=== PATIENT | female | born 1950 | race Caucasian/White ===

== ENCOUNTER 2021-12-15 03:35 | Inpatient (IN) | payer MEDICARE, BC ==
[2021-12-15] MEDS ORDERED: Sodium Chloride 0.9% 1,000 ML IV ONE (03:52)
[2021-12-15] MEDS ORDERED: Sodium Chloride 0.9% 10 ML Syringe FLUSH PRN (03:52)
[2021-12-15] MEDS ORDERED: cefTRIAXone 1 GM Vial IVPUSH ONE (03:52)
[2021-12-15] MEDS ORDERED: Acetaminophen 500 MG Tab PO ONE (04:05)
[2021-12-15 04:37] LABS: CHLORIDE,CL 101 mmol/L (98-107); SODIUM,NA 139 mmol/L (136-145)
[2021-12-15 04:38] LABS: ANION GAP 18.7 mmol/L (5-15); ESTIMATED GFR 37 mL/min (>=60)
[2021-12-15] MEDS ORDERED: Rosuvastatin 20 MG Tab ONE (11:40)
[2021-12-15] MEDS ORDERED: ClonazePAM 0.5 MG Tab ONE (11:40)
[2021-12-15] MEDS ORDERED: LORazepam 2 MG/ML SDV ONE (11:40)
[2021-12-15] MEDS ORDERED: Amitriptyline 25 MG Tab ONE (11:40)
[2021-12-15] MEDS ORDERED: Acetaminophen 325 MG Tab ONE (11:40)
[2021-12-15] MEDS ORDERED: Acetaminophen 500 MG Tab ONE (11:40)
[2021-12-15] MEDS ORDERED: Piperacillin/Tazobactam 4.5 GM in Sodium Chloride 0.9% 100 ML IV ONE (12:00)
[2021-12-15] MEDS ORDERED: Vancomycin/Water for INJ (PEG) 1.5 GM/300 ML Premix ONE (12:00)
[2021-12-15] MEDS ORDERED: Insulin Glarg,Human.Rec.Analog 100 Unit/ML ONE (12:01)
[2021-12-15] MEDS ORDERED: Insulin Lispro 100 Units/ML 3 ML Vial ONE (12:01)
[2021-12-15] MEDS ORDERED: Piperacillin/Tazobactam 3.375 GM in Sodium Chloride 0.9% 100 ML IV ONE (19:52)
[2021-12-15] MEDS ORDERED: Enoxaparin 40 MG/0.4 ML Syringe ONE (23:45)
[2021-12-16] MEDS ORDERED: Piperacillin/Tazobactam 3.375 GM in Sodium Chloride 0.9% 100 ML IV ONE (05:01)
[2021-12-16] MEDS ORDERED: Acetaminophen 325 MG Tab ONE (07:53)
[2021-12-16] MEDS ORDERED: Enoxaparin 40 MG/0.4 ML Syringe ONE (07:53)
[2021-12-16] MEDS ORDERED: Levothyroxine 50 MCG Tab ONE (07:53)
[2021-12-16] MEDS ORDERED: Losartan 50 MG Tab ONE (07:53)
[2021-12-16] MEDS ORDERED: Rosuvastatin 20 MG Tab ONE (07:53)
[2021-12-16] MEDS ORDERED: Metoprolol Succinate 50 MG Tab.ER ONE (07:53)
[2021-12-16] MEDS ORDERED: Aspirin 81 MG Tab.EC ONE (07:53)
[2021-12-17] MEDS ORDERED: Piperacillin/Tazobactam 3.375 GM in Sodium Chloride 0.9% 100 ML IV ONE (04:52)
[2021-12-17] MEDS ORDERED: Losartan 50 MG Tab ONE (07:39)
[2021-12-17] MEDS ORDERED: Acetaminophen 325 MG Tab ONE (07:39)
[2021-12-17] MEDS ORDERED: Aspirin 81 MG Tab.EC ONE (07:39)
[2021-12-17] MEDS ORDERED: Metoprolol Succinate 50 MG Tab.ER ONE (07:39)
[2021-12-17] MEDS ORDERED: Levothyroxine 50 MCG Tab ONE (07:39)
[2021-12-30 13:00] LABS: ANION GAP 15.5 mmol/L (5-15)
[2021-12-30 14:48] LABS: ANION GAP 15.6 mmol/L (5-15)
== END 2021-12-17 16:35 | disposition home or self-care (01) | DRG 872 ==
LOC: VM.ED 03:35 → VM.ZCENSUS 04:43
PROVIDERS: ADMIT Nurse Practitioner Family; ATTEND Nurse Practitioner Family
DX: A41.51 Sepsis due to Escherichia coli [E. coli] (principal); N17.9 Acute kidney failure, unspecified; A41.9 Sepsis, unspecified organism; N39.0 Urinary tract infection, site not specified; F41.1 Generalized anxiety disorder; E03.9 Hypothyroidism, unspecified; N18.30 Chronic kidney disease, stage 3 unspecified; E11.22 Type 2 diabetes mellitus with diabetic chronic kidney disease; E11.42 Type 2 diabetes mellitus with diabetic polyneuropathy; N18.31 Chronic kidney disease, stage 3a; G25.81 Restless legs syndrome; F32.A Depression, unspecified; E78.5 Hyperlipidemia, unspecified; Z79.4 Long term (current) use of insulin; F50.9 Eating disorder, unspecified; R41.0 Disorientation, unspecified; W19.XXXA Unspecified fall, initial encounter
CPT/HCPCS: 80053; 83605; 85025; 85610; 87040 ×2; 87077; 87186; 99284; A9270; J0696; J7030; 36415; 80048; 81001; 82947; 85027; 87086; J1650; J1815-GY; J2060; J2543; J3370

== ENCOUNTER 2022-06-01 11:30 | Inpatient (IN) | payer MEDICARE, BC ==
[2022-06-01] MEDS ORDERED: Ondansetron 4 MG Tab.DIS PO PRN (13:29)
[2022-06-01] MEDS ORDERED: Polyethylene Glycol 3350 Powder 17 GM Packet PO PRN (13:29)
[2022-06-01] MEDS ORDERED: Magnesium Hydroxide 400 MG/5 ML Susp 30 ML Cup PO PRN (13:29)
[2022-06-01] MEDS: Miconazole 2% Top Powder 45 GM Container TOP SCH ×2 (17:22→21:50)
[2022-06-01] MEDS ORDERED: 50% Dextrose in Water 50 ML Syringe IVPUSH PRN (17:46)
[2022-06-01] MEDS ORDERED: Glucagon,Human Recombinant 1 MG Vial IM PRN (17:46)
[2022-06-01] MEDS: Fluticasone Propionate Nasal Spray 9.9 ML BOTTLE NASBOTH SCH (18:29)
[2022-06-01] MEDS ORDERED: Insulin Glarg,Human.Rec.Analog 100 Unit/ML SUBCUT SCH (21:00)
[2022-06-01] MEDS: ClonazePAM 0.5 MG Tab PO PRN (21:58)
[2022-06-01] MEDS ORDERED: Acetaminophen 500 MG Tab PO ONE (23:44)
[2022-06-02] MEDS: Pantoprazole 40 MG Tab.CR PO SCH (06:39)
[2022-06-02] MEDS: Levothyroxine 50 MCG Tab PO SCH (06:39)
[2022-06-02] MEDS: Cholecalciferol (Vitamin D3) 25 MCG Tab PO SCH (08:25)
[2022-06-02] MEDS: dexAMETHasone 2 MG, dexAMETHasone 4 MG PO SCH ×2 (08:25)
[2022-06-02] MEDS: Aspirin 81 MG Tab.EC PO SCH (08:25)
[2022-06-02] MEDS: Montelukast 10 MG Tab PO SCH (08:26)
[2022-06-02] MEDS: Fluticasone Propionate Nasal Spray 9.9 ML BOTTLE NASBOTH SCH (08:26)
[2022-06-02] MEDS: Miconazole 2% Top Powder 45 GM Container TOP SCH ×3 (08:27→20:36)
[2022-06-02] MEDS ORDERED: DEXAMETHASONE 6 MG PO SCH (09:00)
[2022-06-02] MEDS: Metoprolol Succinate 25 MG Tab.ER PO SCH (09:49)
[2022-06-02] MEDS ORDERED: Insulin Regular, Human 100 Units/ML 3 ML Vial SUBCUT ONE ×2 (17:52→21:45)
[2022-06-02] MEDS ORDERED: 50% Dextrose in Water 50 ML Syringe IVPUSH PRN ×2 (17:52→21:25)
[2022-06-02] MEDS ORDERED: Glucagon,Human Recombinant 1 MG Vial IM PRN ×2 (17:52→21:25)
[2022-06-02] MEDS: Acetaminophen 325 MG Tab PO PRN (23:15)
[2022-06-03] MEDS: ClonazePAM 0.5 MG Tab PO PRN ×2 (02:00→22:56)
[2022-06-03] MEDS: Levothyroxine 50 MCG Tab PO SCH (06:45)
[2022-06-03] MEDS: Pantoprazole 40 MG Tab.CR PO SCH (06:45)
[2022-06-03] MEDS: Aspirin 81 MG Tab.EC PO SCH (08:57)
[2022-06-03] MEDS: dexAMETHasone 2 MG, dexAMETHasone 4 MG PO SCH ×2 (08:57)
[2022-06-03] MEDS: Cholecalciferol (Vitamin D3) 25 MCG Tab PO SCH (08:58)
[2022-06-03] MEDS: Montelukast 10 MG Tab PO SCH (08:58)
[2022-06-03] MEDS: Fluticasone Propionate Nasal Spray 9.9 ML BOTTLE NASBOTH SCH (09:04)
[2022-06-03] MEDS: Miconazole 2% Top Powder 45 GM Container TOP SCH ×3 (09:10→21:23)
[2022-06-03] MEDS: Insulin Glarg,Human.Rec.Analog 100 Unit/ML SUBCUT SCH (09:42)
[2022-06-03] MEDS: Metoprolol Succinate 25 MG Tab.ER PO SCH (10:48)
[2022-06-03] MEDS: Acetaminophen 325 MG Tab PO PRN (21:14)
[2022-06-03] MEDS ORDERED: Insulin Regular, Human 100 Units/ML 3 ML Vial SUBCUT ONE ×2 (21:26→22:50)
[2022-06-03] MEDS ORDERED: 50% Dextrose in Water 50 ML Syringe IVPUSH PRN (22:43)
[2022-06-03] MEDS ORDERED: Glucagon,Human Recombinant 1 MG Vial IM PRN (22:43)
[2022-06-04] MEDS: Levothyroxine 50 MCG Tab PO SCH (06:43)
[2022-06-04] MEDS: Pantoprazole 40 MG Tab.CR PO SCH (06:43)
[2022-06-04] MEDS ORDERED: Insulin Regular, Human 100 Units/ML 3 ML Vial SUBCUT SCH (09:24)
[2022-06-04] MEDS: Insulin Glarg,Human.Rec.Analog 100 Unit/ML SUBCUT SCH (09:36)
[2022-06-04] MEDS: dexAMETHasone 2 MG, dexAMETHasone 4 MG PO SCH ×2 (09:41)
[2022-06-04] MEDS: Venlafaxine 75 MG Cap.ER PO SCH (09:42)
[2022-06-04] MEDS: Aspirin 81 MG Tab.EC PO SCH (09:42)
[2022-06-04] MEDS: Montelukast 10 MG Tab PO SCH (09:42)
[2022-06-04] MEDS: Cholecalciferol (Vitamin D3) 25 MCG Tab PO SCH (09:42)
[2022-06-04] MEDS: Metoprolol Succinate 25 MG Tab.ER PO SCH (09:49)
[2022-06-04] MEDS: Fluticasone Propionate Nasal Spray 9.9 ML BOTTLE NASBOTH SCH (09:50)
[2022-06-04] MEDS: Miconazole 2% Top Powder 45 GM Container TOP SCH ×3 (09:51→21:24)
[2022-06-04] MEDS: Acetaminophen 325 MG Tab PO PRN (21:23)
[2022-06-05] MEDS: Levothyroxine 50 MCG Tab PO SCH (06:09)
[2022-06-05] MEDS: Pantoprazole 40 MG Tab.CR PO SCH (06:10)
[2022-06-05] MEDS: Insulin Glarg,Human.Rec.Analog 100 Unit/ML SUBCUT SCH (09:35)
[2022-06-05] MEDS: Miconazole 2% Top Powder 45 GM Container TOP SCH ×2 (09:38→13:00)
[2022-06-05] MEDS: Fluticasone Propionate Nasal Spray 9.9 ML BOTTLE NASBOTH SCH (09:38)
[2022-06-05] MEDS: Venlafaxine 75 MG Cap.ER PO SCH (09:39)
[2022-06-05] MEDS: Aspirin 81 MG Tab.EC PO SCH (09:39)
[2022-06-05] MEDS: Metoprolol Succinate 25 MG Tab.ER PO SCH (09:41)
[2022-06-05] MEDS: Acetaminophen 325 MG Tab PO PRN (21:02)
[2022-06-06] MEDS: Miconazole 2% Top Powder 45 GM Container TOP SCH ×4 (00:35→21:13)
[2022-06-06] MEDS: ClonazePAM 0.5 MG Tab PO PRN (00:40)
[2022-06-06] MEDS: Pantoprazole 40 MG Tab.CR PO SCH (06:34)
[2022-06-06] MEDS: Levothyroxine 50 MCG Tab PO SCH (06:34)
[2022-06-06] MEDS: Insulin Glarg,Human.Rec.Analog 100 Unit/ML SUBCUT SCH (09:48)
[2022-06-06] MEDS: Cholecalciferol (Vitamin D3) 25 MCG Tab PO SCH (09:49)
[2022-06-06] MEDS: Aspirin 81 MG Tab.EC PO SCH (09:49)
[2022-06-06] MEDS: Venlafaxine 75 MG Cap.ER PO SCH (09:49)
[2022-06-06] MEDS: Metoprolol Succinate 25 MG Tab.ER PO SCH (09:50)
[2022-06-06] MEDS: Fluticasone Propionate Nasal Spray 9.9 ML BOTTLE NASBOTH SCH (09:51)
[2022-06-06] MEDS: Acetaminophen 325 MG Tab PO PRN (21:11)
[2022-06-07] MEDS: Levothyroxine 50 MCG Tab PO SCH (06:48)
[2022-06-07] MEDS: Pantoprazole 40 MG Tab.CR PO SCH (06:48)
[2022-06-07] MEDS: Cholecalciferol (Vitamin D3) 25 MCG Tab PO SCH ×2 (07:47→08:11)
[2022-06-07] MEDS: Aspirin 81 MG Tab.EC PO SCH (08:11)
[2022-06-07] MEDS: Venlafaxine 75 MG Cap.ER PO SCH (08:11)
[2022-06-07] MEDS: Metoprolol Succinate 25 MG Tab.ER PO SCH (08:11)
[2022-06-07] MEDS: Fluticasone Propionate Nasal Spray 9.9 ML BOTTLE NASBOTH SCH (08:14)
[2022-06-07] MEDS: Insulin Glarg,Human.Rec.Analog 100 Unit/ML SUBCUT SCH (08:14)
[2022-06-07] MEDS: Miconazole 2% Top Powder 45 GM Container TOP SCH ×3 (08:18→20:45)
[2022-06-07] MEDS: Acetaminophen 325 MG Tab PO PRN (20:46)
[2022-06-08] MEDS: Pantoprazole 40 MG Tab.CR PO SCH (06:26)
[2022-06-08] MEDS: Levothyroxine 50 MCG Tab PO SCH (06:27)
[2022-06-08] MEDS: Insulin Glarg,Human.Rec.Analog 100 Unit/ML SUBCUT SCH (08:38)
[2022-06-08] MEDS: Venlafaxine 75 MG Cap.ER PO SCH (08:38)
[2022-06-08] MEDS: Aspirin 81 MG Tab.EC PO SCH (08:38)
[2022-06-08] MEDS: Metoprolol Succinate 25 MG Tab.ER PO SCH (08:38)
[2022-06-08] MEDS: Cholecalciferol (Vitamin D3) 25 MCG Tab PO SCH (09:00)
[2022-06-08] MEDS: Fluticasone Propionate Nasal Spray 9.9 ML BOTTLE NASBOTH SCH (09:00)
[2022-06-08] MEDS: Miconazole 2% Top Powder 45 GM Container TOP SCH ×3 (10:28→20:46)
[2022-06-08] MEDS: ClonazePAM 0.5 MG Tab PO PRN (20:51)
[2022-06-09] MEDS: Levothyroxine 50 MCG Tab PO SCH (07:00)
[2022-06-09] MEDS: Pantoprazole 40 MG Tab.CR PO SCH (07:00)
[2022-06-09] MEDS: Aspirin 81 MG Tab.EC PO SCH (09:49)
[2022-06-09] MEDS: Cholecalciferol (Vitamin D3) 25 MCG Tab PO SCH (09:49)
[2022-06-09] MEDS: Metoprolol Succinate 25 MG Tab.ER PO SCH (09:49)
[2022-06-09] MEDS: Venlafaxine 75 MG Cap.ER PO SCH (09:50)
[2022-06-09] MEDS: Insulin Glarg,Human.Rec.Analog 100 Unit/ML SUBCUT SCH (09:51)
[2022-06-09] MEDS: Miconazole 2% Top Powder 45 GM Container TOP SCH ×2 (09:53→13:08)
[2022-06-09] MEDS: Fluticasone Propionate Nasal Spray 9.9 ML BOTTLE NASBOTH SCH (09:54)
== END 2022-06-09 15:50 | disposition home or self-care (01) | DRG 947 ==
LOC: VM.MS 12:34
PROVIDERS: ADMIT Nurse Practitioner Family; ATTEND Nurse Practitioner Family
PROC: 3E0333Z Introduction of Anti-inflammatory into Peripheral Vein, Percutaneous Approach (ICD-10-PCS; principal; 2022-06-02)
DX: R53.81 Other malaise (principal); U07.1 COVID-19; E11.65 Type 2 diabetes mellitus with hyperglycemia; E78.2 Mixed hyperlipidemia; F41.1 Generalized anxiety disorder; I12.9 Hypertensive chronic kidney disease with stage 1 through stage 4 chronic kidney disease, or unspecified chronic kidney disease; E11.22 Type 2 diabetes mellitus with diabetic chronic kidney disease; E03.9 Hypothyroidism, unspecified; N18.30 Chronic kidney disease, stage 3 unspecified; G25.81 Restless legs syndrome; H66.91 Otitis media, unspecified, right ear; F32.9 Major depressive disorder, single episode, unspecified; E11.42 Type 2 diabetes mellitus with diabetic polyneuropathy; B37.2 Candidiasis of skin and nail; Z79.82 Long term (current) use of aspirin; Z79.899 Other long term (current) drug therapy; Z88.8 Allergy status to other drugs, medicaments and biological substances; Z79.890 Hormone replacement therapy
CPT/HCPCS: 82947; 95851-GO; 97110-GP; 97116-GP; 97162-GP; 97165-GO; 97535-GO; A9270-GY; J1815-GY; J8540

== ENCOUNTER 2023-06-15 13:28 | Inpatient (IN) | payer MEDICARE, BC ==
[2023-06-15] MEDS: Orphenadrine 60 MG/2 ML Inj IM ONE (13:46)
[2023-06-15] MEDS: Ketorolac 30 MG/ML SDV IM ONE (13:48)
[2023-06-15] MEDS ORDERED: Ondansetron 4 MG Tab.DIS PO PRN (15:20)
[2023-06-15] MEDS: Acetaminophen/HYDROcodone 325-5 MG Tab PO PRN (17:02)
[2023-06-15] MEDS ORDERED: traMADol 50 MG Tab PO SCH (18:00)
[2023-06-15] MEDS: Cyclobenzaprine 10 MG Tab PO PRN (18:47)
[2023-06-15] MEDS: Gabapentin 100 MG Cap PO SCH (20:26)
[2023-06-15] MEDS: Celecoxib 100 MG Cap PO SCH (20:26)
[2023-06-16] MEDS: Levothyroxine 50 MCG Tab PO SCH (06:31)
[2023-06-16] MEDS: glipiZIDE 5 MG Tab PO SCH (08:39)
[2023-06-16] MEDS: Lactobacillus Rhamnosus GG (Probiotic) Cap PO SCH (08:39)
[2023-06-16] MEDS: Venlafaxine 75 MG Cap.ER PO SCH (08:40)
[2023-06-16] MEDS: Fish Oil/Omega-3 Fatty Acids 1 Gm Cap PO SCH (08:40)
[2023-06-16] MEDS: Cholecalciferol (Vitamin D3) 25 MCG Tab PO SCH (08:40)
[2023-06-16] MEDS: BASAGLAR 100 UNIT/ML SUBCUT SCH (08:51)
[2023-06-16] MEDS ORDERED: BASAGLAR 100 UNIT/ML SUBCUT SCH (09:00)
[2023-06-16] MEDS ORDERED: Insulin Glarg,Human.Rec.Analog 100 Unit/ML 10 ML Vial SUBCUT SCH (09:00)
[2023-06-16] MEDS ORDERED: Naloxone 0.4 MG/ML SDV IVPUSH PRN (13:08)
[2023-06-16 15:27] LABS: BASOPHILS PERCENT AUTO 0.4 % (0.2-1.2); EOSINOPHILS ABSOLUTE AUTO 0.2 x10^3/uL (0.0-0.5); EOSINOPHILS PERCENT AUTO 2.4 % (0.0-4.0); HEMATOCRIT 43.8 % (33.0-47.0); HEMOGLOBIN 14.5 g/dL (12.0-16.0); IMMATURE GRAN ABSOLUTE AUTO 0.02 x10^3/uL (0.00-0.07); LYMPHOCYTES ABSOLUTE AUTO 2.8 x10^3/uL (1.0-4.8); LYMPHOCYTES PERCENT AUTO 33.3 % (25.0-50.0); MEAN CORPUSCULAR HGB CONC 33.1 g/dL (32.0-36.0); MEAN CORPUSCULAR VOLUME 93.8 fL (78.0-93.0); MONOCYTES ABSOLUTE AUTO 0.7 x10^3/uL (0.0-0.8); MONOCYTES PERCENT AUTO 7.7 % (2.0-11.0); NEUTROPHILS ABSOLUTE AUTO 4.7 x10^3/uL (1.8-7.7); PLATELET COUNT,PLT 318 x10^3/uL (130-400); RED BLOOD CELL COUNT 4.67 x10^6/uL (4.00-5.50); WHITE BLOOD CELL COUNT,WBC 8.5 x10^3/uL (4.0-10.0)
[2023-06-16 15:42] LABS: APPEARANCE,URINE CLOUDY (CLEAR); BILIRUBIN,URINE NEGATIVE (NEGATIVE); GLUCOSE,URINE NEGATIVE (NEGATIVE); KETONES,URINE NEGATIVE (NEGATIVE); LEUKOCYTE ESTERASE,URINE SMALL (NEGATIVE); NITRITE,URINE POSITIVE (NEGATIVE); OCCULT BLOOD,URINE MODERATE (NEGATIVE); PH,URINE 5.5 (5.0-8.0); PROTEIN,URINE TRACE mg/dL (NEGATIVE); UROBILINOGEN,URINE 0.2 EU/dL (0.2)
[2023-06-16 15:43] LABS: A/G RATIO 0.97; ALBUMIN 3.7 g/dL (3.4-5.0); BILIRUBIN TOTAL 0.9 mg/dL (0.2-1.0); C-REACTIVE PROTEIN 0.87 mg/dL (<=0.50); CALCIUM 9.4 mg/dL (8.5-10.1); CREATININE 1.1 mg/dL (0.55-1.02); EST CRCL DRUG DOSING (CG) 48.01 mL/min; POTASSIUM,K 4.4 mmol/L (3.5-5.1); PROTEIN TOTAL,TP 7.5 g/dL (6.4-8.2)
[2023-06-16 15:44] LABS: ANION GAP 16.4 mmol/L (5-15)
[2023-06-16 15:46] LABS: COLOR,URINE YELLOW (YELLOW)
[2023-06-16 15:53] LABS: BACTERIA,URINE MANY /HPF (NOT SEEN); SQUAMOUS EPITHELIAL CELLS,UR FEW /HPF (NOT SEEN); WBC,URINE 30-40 /HPF (NOT SEEN)
[2023-06-16 15:57] LABS: MUCUS,URINE OCCASIONAL /LPF (NOT SEEN)
[2023-06-16] MEDS: HYDROmorphone 0.5 MG/0.5 ML Syringe IVPUSH PRN (18:16)
[2023-06-16] MEDS: Sulfamethoxazole/Trimethoprim 400-80 MG Tab PO SCH (18:17)
[2023-06-17] MEDS: Sodium Chloride 0.9% 10 ML Syringe FLUSH PRN (04:26)
[2023-06-17] MEDS: Venlafaxine 75 MG Cap.ER PO SCH (06:25)
[2023-06-17] MEDS: glipiZIDE 5 MG Tab PO SCH (06:29)
[2023-06-18] MEDS ORDERED: Glucagon,Human Recombinant 1 MG Vial IM PRN ×2 (16:48→16:49)
[2023-06-18] MEDS ORDERED: 50% Dextrose in Water 50 ML Syringe IVPUSH PRN ×2 (16:48→16:49)
[2023-06-18] MEDS: Gabapentin 100 MG Cap PO SCH ×2 (17:05→20:35)
[2023-06-18] MEDS: Insulin Lispro 100 Units/ML 3 ML Vial SUBCUT SCH (17:55)
[2023-06-18] MEDS: Cyclobenzaprine 10 MG Tab PO SCH (20:37)
[2023-06-18] MEDS: Insulin Glarg,Human.Rec.Analog 100 Unit/ML 10 ML Vial SUBCUT SCH (21:02)
[2023-06-19 06:43] LABS: BASOPHILS PERCENT AUTO 0.3 % (0.2-1.2); EOSINOPHILS ABSOLUTE AUTO 0.2 x10^3/uL (0.0-0.5); EOSINOPHILS PERCENT AUTO 3.2 % (0.0-4.0); HEMATOCRIT 40.7 % (33.0-47.0); HEMOGLOBIN 13.4 g/dL (12.0-16.0); IMMATURE GRAN ABSOLUTE AUTO 0.01 x10^3/uL (0.00-0.07); LYMPHOCYTES ABSOLUTE AUTO 2.6 x10^3/uL (1.0-4.8); LYMPHOCYTES PERCENT AUTO 36.3 % (25.0-50.0); MEAN CORPUSCULAR HEMOGLOBIN 30.9 pg (26.0-32.0); MEAN CORPUSCULAR HGB CONC 32.9 g/dL (32.0-36.0); MONOCYTES ABSOLUTE AUTO 0.8 x10^3/uL (0.0-0.8); MONOCYTES PERCENT AUTO 10.4 % (2.0-11.0); NEUTROPHILS ABSOLUTE AUTO 3.6 x10^3/uL (1.8-7.7); NEUTROPHILS PERCENT AUTO 49.7 % (50.0-80.0); PLATELET COUNT,PLT 285 x10^3/uL (130-400); RED BLOOD CELL COUNT 4.33 x10^6/uL (4.00-5.50); WHITE BLOOD CELL COUNT,WBC 7.2 x10^3/uL (4.0-10.0)
[2023-06-19 07:03] LABS: A/G RATIO 0.84; ALBUMIN 3.2 g/dL (3.4-5.0); BILIRUBIN TOTAL 0.9 mg/dL (0.2-1.0); CALCIUM 9.2 mg/dL (8.5-10.1); CREATININE 0.9 mg/dL (0.55-1.02); EST CRCL DRUG DOSING (CG) 58.67 mL/min; POTASSIUM,K 4.1 mmol/L (3.5-5.1)
[2023-06-19 07:04] LABS: ANION GAP 14.1 mmol/L (5-15)
[2023-06-19] MEDS: Enoxaparin 40 MG/0.4 ML Syringe SUBCUT SCH (11:14)
[2023-06-19] MEDS: Sulfamethoxazole/Trimethoprim 800-160 MG Tab PO SCH (20:01)
[2023-06-20 06:57] LABS: HEMATOCRIT 39.1 % (33.0-47.0); MEAN CORPUSCULAR HEMOGLOBIN 31.3 pg (26.0-32.0); MEAN CORPUSCULAR HGB CONC 33.2 g/dL (32.0-36.0); RED BLOOD CELL COUNT 4.16 x10^6/uL (4.00-5.50); WHITE BLOOD CELL COUNT,WBC 6.6 x10^3/uL (4.0-10.0)
[2023-06-20] MEDS ORDERED: Flumazenil 0.1 MG/ML 5 ML MDV IVPUSH PRN ×2 (10:31→11:48)
[2023-06-20] MEDS: LORazepam 2 MG/ML SDV IVPUSH ONE ×2 (10:56→15:22)
== END 2023-06-21 14:49 | disposition swing bed (61) | DRG 552 ==
LOC: VM.ED 13:28 → VM.MS 15:07 → OBSVTOIN 06-17 14:35 → UNDODISIN 06-20 14:26
PROVIDERS: ADMIT Physician Assistant Medical; ATTEND Physician Assistant
DX: M54.41 Lumbago with sciatica, right side (principal); Z68.43 Body mass index [BMI] 50.0-59.9, adult; G89.29 Other chronic pain; H54.7 Unspecified visual loss; E78.00 Pure hypercholesterolemia, unspecified; G25.81 Restless legs syndrome; G43.909 Migraine, unspecified, not intractable, without status migrainosus; M54.50 Low back pain, unspecified; E11.65 Type 2 diabetes mellitus with hyperglycemia; E11.22 Type 2 diabetes mellitus with diabetic chronic kidney disease; N18.31 Chronic kidney disease, stage 3a; E11.42 Type 2 diabetes mellitus with diabetic polyneuropathy; E11.69 Type 2 diabetes mellitus with other specified complication; I15.2 Hypertension secondary to endocrine disorders; F41.1 Generalized anxiety disorder; F33.41 Major depressive disorder, recurrent, in partial remission; E66.01 Morbid (severe) obesity due to excess calories; E78.5 Hyperlipidemia, unspecified; M54.16 Radiculopathy, lumbar region; F34.1 Dysthymic disorder; N30.90 Cystitis, unspecified without hematuria; B96.20 Unspecified Escherichia coli [E. coli] as the cause of diseases classified elsewhere; M79.604 Pain in right leg; E11.9 Type 2 diabetes mellitus without complications; E03.9 Hypothyroidism, unspecified; I10 Essential (primary) hypertension; Z86.16 Personal history of COVID-19; Z87.440 Personal history of urinary (tract) infections; Z98.49 Cataract extraction status, unspecified eye; Z79.82 Long term (current) use of aspirin; Z79.4 Long term (current) use of insulin; Z79.899 Other long term (current) drug therapy; Z88.8 Allergy status to other drugs, medicaments and biological substances
CPT/HCPCS: 36415; 72100; 80053; 81001; 82947 ×4; 85025; 85652; 86140; 87086; 87088 ×2; 87186 ×2; 96372 ×2; 96374; 96376 ×2; 97110; 97116; 97162; 99284; A9270 ×32; G0378 ×4; J1170 ×5; J1885; J2360; 85027; 95851-GO; 97165-GO; 97530-GP; 97535-GO; J1650; J1815-GY; J2060; J3490

== ENCOUNTER 2023-06-20 10:06 | Inpatient (IN) | payer MEDICARE, BC ==
[2023-06-21] MEDS ORDERED: Ondansetron 4 MG Tab.DIS PO PRN (16:52)
[2023-06-21] MEDS ORDERED: 50% Dextrose in Water 50 ML Syringe IVPUSH PRN (16:52)
[2023-06-21] MEDS ORDERED: Glucagon,Human Recombinant 1 MG Vial IM PRN (16:52)
[2023-06-21] MEDS: Insulin Lispro 100 Units/ML 3 ML Vial SUBCUT SCH (17:38)
[2023-06-21] MEDS: Acetaminophen/HYDROcodone 325-5 MG Tab PO PRN (17:39)
[2023-06-21] MEDS: Cyclobenzaprine 10 MG Tab PO PRN (17:40)
[2023-06-21] MEDS: Gabapentin 100 MG Cap PO SCH ×2 (17:40→21:37)
[2023-06-21] MEDS: Celecoxib 100 MG Cap PO SCH (21:37)
[2023-06-22] MEDS: Venlafaxine 75 MG Cap.ER PO SCH (06:25)
[2023-06-22] MEDS: Levothyroxine 50 MCG Tab PO SCH (06:25)
[2023-06-22 07:20] LABS: HEMATOCRIT 43.3 % (33.0-47.0); HEMOGLOBIN 14.2 g/dL (12.0-16.0); MEAN CORPUSCULAR HEMOGLOBIN 30.9 pg (26.0-32.0); MEAN CORPUSCULAR HGB CONC 32.8 g/dL (32.0-36.0); MEAN CORPUSCULAR VOLUME 94.3 fL (78.0-93.0); RED BLOOD CELL COUNT 4.59 x10^6/uL (4.00-5.50); WHITE BLOOD CELL COUNT,WBC 6.1 x10^3/uL (4.0-10.0)
[2023-06-22] MEDS ORDERED: Non-Formulary Medication 1 Each (Desvenlafaxine Succinate 25 MG Tab.Er.24h) PO SCH (09:00)
[2023-06-22] MEDS: glipiZIDE 5 MG Tab PO SCH (09:31)
[2023-06-22] MEDS: Lactobacillus Rhamnosus GG (Probiotic) Cap PO SCH (09:31)
[2023-06-22] MEDS: Cholecalciferol (Vitamin D3) 25 MCG Tab PO SCH (09:31)
[2023-06-22] MEDS: Enoxaparin 40 MG/0.4 ML Syringe SUBCUT SCH (09:32)
[2023-06-22] MEDS: predniSONE 20 MG Tab PO SCH ×2 (09:32)
[2023-06-22] MEDS: Insulin Glarg,Human.Rec.Analog 100 Unit/ML 10 ML Vial SUBCUT SCH (09:36)
[2023-06-23] MEDS: glipiZIDE 5 MG Tab PO SCH (09:36)
[2023-06-23] MEDS: Insulin Lispro 100 Units/ML 3 ML Vial SUBCUT SCH (11:18)
[2023-06-24] MEDS: oxyCODONE 5 MG Tab PO ONE (22:26)
[2023-06-25 07:00] LABS: HEMATOCRIT 42.8 % (33.0-47.0); HEMOGLOBIN 14.1 g/dL (12.0-16.0); MEAN CORPUSCULAR HEMOGLOBIN 30.7 pg (26.0-32.0); MEAN CORPUSCULAR HGB CONC 32.9 g/dL (32.0-36.0); RED BLOOD CELL COUNT 4.6 x10^6/uL (4.00-5.50); WHITE BLOOD CELL COUNT,WBC 11.1 x10^3/uL (4.0-10.0)
[2023-06-25] MEDS: predniSONE 20 MG Tab PO SCH (10:07)
[2023-06-27] MEDS: LORazepam 1 MG Tab PO ONE (09:50)
[2023-06-27] MEDS: Gabapentin 300 MG Cap PO SCH (12:32)
[2023-06-27] MEDS: Celecoxib 100 MG Cap PO SCH (17:15)
[2023-06-28 07:03] LABS: HEMATOCRIT 42.1 % (33.0-47.0); HEMOGLOBIN 14.3 g/dL (12.0-16.0); MEAN CORPUSCULAR HEMOGLOBIN 31.4 pg (26.0-32.0); MEAN CORPUSCULAR VOLUME 92.3 fL (78.0-93.0); RED BLOOD CELL COUNT 4.56 x10^6/uL (4.00-5.50); WHITE BLOOD CELL COUNT,WBC 11.2 x10^3/uL (4.0-10.0)
[2023-06-29] MEDS: LORazepam 0.5 MG Tab PO PRN (17:58)
[2023-06-30] MEDS: Acetaminophen/oxyCODONE 325-5 MG Tab PO PRN (14:01)
[2023-07-01 08:18] LABS: HEMATOCRIT 44.6 % (33.0-47.0); HEMOGLOBIN 14.6 g/dL (12.0-16.0); MEAN CORPUSCULAR HGB CONC 32.7 g/dL (32.0-36.0); MEAN CORPUSCULAR VOLUME 94.7 fL (78.0-93.0); RED BLOOD CELL COUNT 4.71 x10^6/uL (4.00-5.50)
[2023-07-02] MEDS: Insulin Lispro 100 Units/ML 3 ML Vial SUBCUT SCH (17:15)
[2023-07-03] MEDS ORDERED: Glucagon,Human Recombinant 1 MG Vial IM PRN (10:28)
[2023-07-03] MEDS ORDERED: 50% Dextrose in Water 50 ML Syringe IVPUSH PRN (10:28)
[2023-07-03] MEDS: Insulin Glarg,Human.Rec.Analog 100 Unit/ML 10 ML Vial SUBCUT SCH (20:55)
[2023-07-04 06:47] LABS: HEMATOCRIT 41.8 % (33.0-47.0); HEMOGLOBIN 13.9 g/dL (12.0-16.0); MEAN CORPUSCULAR HEMOGLOBIN 31.2 pg (26.0-32.0); MEAN CORPUSCULAR HGB CONC 33.3 g/dL (32.0-36.0); MEAN CORPUSCULAR VOLUME 93.7 fL (78.0-93.0); RED BLOOD CELL COUNT 4.46 x10^6/uL (4.00-5.50); WHITE BLOOD CELL COUNT,WBC 8.8 x10^3/uL (4.0-10.0)
[2023-07-05] MEDS: HYDROmorphone 2 MG Tab PO PRN (06:33)
== END 2023-07-06 11:00 | DRG 552 ==
LOC: VM.MS 06-21 14:52
PROVIDERS: ADMIT Physician Assistant; ATTEND Physician Assistant
DX: M51.16 Intervertebral disc disorders with radiculopathy, lumbar region (principal); Z68.41 Body mass index [BMI] 40.0-44.9, adult; N30.90 Cystitis, unspecified without hematuria; F34.1 Dysthymic disorder; F41.1 Generalized anxiety disorder; E03.9 Hypothyroidism, unspecified; E66.09 Other obesity due to excess calories; G25.81 Restless legs syndrome; N18.31 Chronic kidney disease, stage 3a; I12.9 Hypertensive chronic kidney disease with stage 1 through stage 4 chronic kidney disease, or unspecified chronic kidney disease; E11.22 Type 2 diabetes mellitus with diabetic chronic kidney disease; E11.65 Type 2 diabetes mellitus with hyperglycemia; E78.00 Pure hypercholesterolemia, unspecified; M19.90 Unspecified osteoarthritis, unspecified site; B96.89 Other specified bacterial agents as the cause of diseases classified elsewhere; C54.1 Malignant neoplasm of endometrium; D25.9 Leiomyoma of uterus, unspecified; G89.29 Other chronic pain; Z88.8 Allergy status to other drugs, medicaments and biological substances; Z79.4 Long term (current) use of insulin; Z79.84 Long term (current) use of oral hypoglycemic drugs; Z86.16 Personal history of COVID-19; Z79.899 Other long term (current) drug therapy
CPT/HCPCS: 36415; 72148; 82947; 83036; 85027; 95851-GO; 97012-GP; 97110-GP; 97140-GP; 97530-GP; 97535-GO; 99205; A9270-GY; G0283-GP; J1650; J1815-GY; J7512